=== PATIENT | female | born 1975 | race Caucasian/White ===

== ENCOUNTER 2017-01-10 09:05 | Emergency (ER) | payer BC ==
--- NOTE | 2017-01-10 09:10 | UC ---
Breast Complaint - HPI Summary HPI Summary: 41 YEAR OLD FEMALE PRESENTS WITH RIGHT BREAST PAIN WITH A PALPABLE MASS. I WILL SEND HER TO [facility] TO RULE OUT MALIGNANCY. - Allergy/Home Medications Allergies/Adverse Reactions: Allergies Allergy/AdvReac Type Severity Reaction Status Date / Time No Known Allergies Allergy Verified 01/10/17 09:14 Home Medications: Home Medications NK [No Home Medications Reported] 01/10/17 [History Confirmed 01/10/17] Review of Systems Constitutional: Negative Skin: Negative Eyes: Negative ENT: Negative Respiratory: Negative, Other Cardiovascular: Negative Gastrointestinal: Negative Genitourinary: Negative Motor: Negative Neurovascular: Negative Musculoskeletal: Other: - RIGHT BREAST MASS Neurological: Negative Psychological: Negative All Other Systems Reviewed And Are Negative: Yes Physical Exam Triage Information Reviewed: Yes Eye Exam: Normal ENT Exam: Normal Dental Exam: Normal Neck exam: Normal Neck: Positive: 1 Respiratory Exam: Normal Cardiovascular Exam: Normal Abdominal Exam: Normal Musculoskeletal: Positive: Other: - RIGHT BREAST MASS Neurological Exam: Normal Psychological Exam: Normal Skin Exam: Normal Breast Pain Course/Dx - Diagnoses Provider Diagnoses: Breast mass in female Discharge - Discharge Plan Condition: Guarded Disposition: AGAINST MEDICAL ADVICE Patient Education Materials: Breast Mass (GEN) Referrals: No Primary Care Phys,NOPCP [Primary Care Provider] -
[2017-01-10 09:14] VITALS: BP 120/53
== END 2017-01-10 09:31 | disposition left against medical advice (07) ==
LOC: UCCORT 09:05
DX: N63 Unspecified lump in breast (principal); Z53.29 Procedure and treatment not carried out because of patient's decision for other reasons
CPT/HCPCS: 99202; G0463

== ENCOUNTER → 2017-01-10 10:12 | Emergency (ER) | payer BC ==
[~2017-01-10 10:12] MED LIST: traMADol TAB* 50 MG PO ONE
[2017-01-10 10:20] VITALS: BP 127/76
--- NOTE | 2017-01-10 11:25 | ED ---
Breast Complaint - HPI Summary HPI Summary: Patient presents to the ED from [facility]. [facility] sent her here for an evaluation of a right breast mass. She states she first felt the mass 2 weeks ago and endorses pain over the area. Denies color or temperature changes. No dimpling. No inflammation in the breast. Breast fed over 10 years ago. However, it was explained to the patient on arrival the need for a mammogram and the limitations of a ultrasound. Fx positive for breast cancer in maternal aunts (2 ), no personal history. She has never had a mammogram and last annual over 10 years ago. She is encouraged to follow up with OBGYN and obtain a mammogram JESSY based on symptoms, age and family history. - History of Current Complaint Hx Obtained From: Patient Breast Chief Complaint: Pain, Breast, Right, Palpable Lump Timing: Constant Breast Pain Radiates To: Right Breast Pain Aggravating Factors: Palpation Breast Pain Alleviating Factors: Nothing Breast Associated Signs/Symptoms: Nodule/Mass - Allergy/Home Medications Allergies/Adverse Reactions: Allergies Allergy/AdvReac Type Severity Reaction Status Date / Time No Known Allergies Allergy Verified 01/10/17 09:14 PMH/Surg Hx/FS Hx/Imm Hx Previously Healthy: Yes - Surgical History Surgery Procedure, Year, and Place: x3 Infectious Disease History: No Infectious Disease History: Denies: Traveled Outside the [place] in Last 30 Days - Social History Occupation: Employed Full-time Lives: With Family Alcohol Use: Occasionally Hx Substance Use: No Substance Use Type: Reports: None Hx Tobacco Use: No Smoking Status (MU): Never Smoked Tobacco Review of Systems Constitutional: Negative Eyes: Negative Cardiovascular: Negative Respiratory: Negative Genitourinary: Negative Positive: no symptoms reported, see HPI Skin: Negative Psychological: Normal All Other Systems Reviewed And Are Negative: Yes Physical Exam Triage Information Reviewed: Yes Vital Signs On Initial Exam: Initial Vitals Temp Pulse Resp BP Pulse Ox 99.2 F 93 18 127/76 98 01/10/17 10:18 01/10/17 10:18 01/10/17 10:18 01/10/17 10:18 01/10/17 10:18 Vital Signs Reviewed: Yes Appearance: Positive: Well-Appearing, No Pain Distress, Well-Nourished Skin: Positive: Warm, Skin Color Reflects Adequate Perfusion Head/Face: Positive: Normal Head/Face Inspection Eyes: Positive: EOMI, KARI, Conjunctiva Clear Neck: Positive: Supple, Nontender, No Lymphadenopathy Respiratory/Lung Sounds: Positive: Clear to Auscultation, Breath Sounds Present Cardiovascular: Positive: Normal, Pulses are Symmetrical in both Upper and Lower Extremities Abdomen Description: Positive: Nontender Musculoskeletal: Positive: Normal, Strength/ROM Intact, Other - breast pain and mass located at 1 oclock over the right breast - non-mobile Neurological: Positive: Speech Normal Psychiatric: Positive: Normal Diagnostics - Vital Signs Vital Signs Temp Pulse Resp BP Pulse Ox 01/10/17 10:35 99.2 F 93 18 127/76 96 01/10/17 10:18 99.2 F 93 18 127/76 98 - Laboratory Lab Statement: Any lab studies that have been ordered have been reviewed, and results considered in the medical decision making process. Breast Pain Course/Dx - Course Course Of Treatment: Patient sent here by [facility]. Right breast pain and mass located at 1 oclock over the right breast - non-mobile. Spoke with Dr. Castaneda and Dr. Barrios who recommended not to obtain a US. Mammogram is study of choice and will need to follow up. Patient is OK with plan. OBGYN referrals given to patient. - Differential Diagnoses Differential Diagnosis/HQI/PQRI: Breast Mass, Cystic Myalgia, Fibrocystic Breast Disease - Diagnoses Provider Diagnoses: Breast mass, right Discharge - Discharge Plan Condition: Stable Disposition: HOME Patient Education Materials: Breast Mass (ED) Referrals: Rain Luis MD [Medical Doctor] - No Primary Care Phys,NOPCP [Primary Care Provider] - Marleen Dalton MD [Medical Doctor] - Additional Instructions: Follow up with our OBGYN Call your OBGYN for appt We recommend a mammogram based on age Follow up with someone as soon as possible
== END | disposition home or self-care (01) ==
LOC: ED 10:12
DX: N63 Unspecified lump in breast (principal)
CPT/HCPCS: 99282